=== PATIENT | male | born 1955 | race Caucasian/White ===

== ENCOUNTER 2019-02-24 20:06 | Emergency (ER) | payer BC ==
--- NOTE | 2019-02-24 20:21 | ERPHSYRPT ---
- History of Present Illness Time Seen by Provider: 02/24/19 20:21 Source: patient, family Exam Limitations: no limitations Physician History: 63 y/o right handed white male presents with left elbow pain after fall injury that occurred approx 1800. pt fell backwards while fixing a porch. he felt a pop then had sudden pain. did not take any meds. pain not any better. Occurred: just prior to arrival Method of Injury: fell Quality: constant, aching, throbbing Severity of Pain-Max: moderate Severity of Pain-Current: moderate Extremities Pain Location: elbow: left Modifying Factors: Improves With: movement (worsens pain) Allergies/Adverse Reactions: No Known Drug Allergies Allergy (Unverified 06/04/15 21:31) Home Medications: Fluticasone Propionate [Flonase Nasal] 2 sprays INTRANASAL DAILY 06/04/15 [ History] Meloxicam [Mobic] 0 mg DAILY 06/04/15 [History] Omeprazole [Prilosec] 40 mg DAILY 06/04/15 [History] Hydrocodone/Acetaminophen [Vicodin 5-300 mg Tablet] 1 each PO Q4H PRN PRN [History] - Review of Systems Constitutional: No Symptoms Eyes: No Symptoms Ears, Nose, & Throat: No Symptoms Respiratory: No Symptoms Cardiac: No Symptoms Abdominal/Gastrointestinal: No Symptoms Genitourinary Symptoms: No Symptoms Musculoskeletal: Fall, Injury (left elbow pain) Skin: No Symptoms Neurological: No Symptoms Psychological: No Symptoms Endocrine: No Symptoms Hematologic/Lymphatic: No Symptoms Immunological/Allergic: No Symptoms All Other Systems: Reviewed and Negative - Past Medical History Pertinent Past Medical History: Yes ENT History: Other Cardiac History: No Pertinent History Respiratory History: COPD Endocrine Medical History: No Pertinent History Musculoskeletal History: Arthritis GI Medical History: GERD History: No Pertinent History Psycho-Social History: No Pertinent History Male Reproductive Disorders: Prostate Cancer Other Medical History: sinus problems - Past Surgical History Past Surgical History: Yes Neuro Surgical History: No Pertinent History Cardiac: No Pertinent History Respiratory: No Pertinent History Gastrointestinal: No Pertinent History Genitourinary: No Pertinent History Musculoskeletal: No Pertinent History Male Surgical History: Prostate Surgery - Social History Smoking Status: Current every day smoker How long have you smoked: 45 years Exposure to second hand smoke: No Drug Use: none Patient Lives Alone: No - Nursing Vital Signs Nursing Vital Signs: Pain Scale Pain Intensity 8 - Physical Exam General Appearance: mild distress, alert, anxiety Eyes, Ears, Nose, Throat Exam: normal ENT inspection, moist mucous membranes Neck Exam: normal inspection, non-tender, supple, full range of motion Cardiovascular/Respiratory Exam: chest non-tender Abdominal Exam: non-tender Back Exam: normal inspection Shoulder Exam: normal inspection, non-tender, no evidence of injury, normal ROM Elbow/Forearm Exam: limited ROM (left elbow ), pain Wrist Exam: normal inspection, non-tender, no evidence of injury, normal ROM Hand Exam: normal inspection, non-tender, no evidence of injury, normal ROM Neuro/Tendon Exam: normal sensation, normal tendon functions, responds to pain Mental Status Exam: alert, oriented x 3, cooperative Skin Exam: normal color, warm SpO2 Interpretation: normal O2 Delivery: Room Air Ordered Tests: Active Orders 24 hr Category Date Time Status Sling Application STAT Care 02/24/19 20:58 Ordered ELBOW (MINIMUM 3 VIEWS) Stat Exams 02/24/19 20:22 Taken FOREARM Stat Exams 02/24/19 20:22 Taken HUMERUS Stat Exams 02/24/19 20:22 Taken Medication Summary Discontinued Medications Generic Name Dose Route Start Last Admin Trade Name Carlosq PRN Reason Stop Dose Admin Ibuprofen 600 mg 02/24/19 20:27 02/24/19 20:32 Motrin 600 Mg PO 02/24/19 20:28 600 mg STAT ONE Administration Ibuprofen Confirm 02/24/19 20:30 Motrin 600 Mg Administered 02/24/19 20:31 Dose 600 mg .ROUTE .STK-MED ONE Oxycodone/Acetaminophen 1 tab 02/24/19 20:27 02/24/19 20:33 Oxycodone-Acetaminophen 10-325 PO 02/24/19 20:28 1 tab STAT STA Administration Oxycodone/Acetaminophen Confirm 02/24/19 20:30 Oxycodone-Acetaminophen 10-325 Administered 02/24/19 20:31 Dose 1 tab .ROUTE .STK-MED ONE - Progress Progress: unchanged, pain not gone completely, re-examined Progress Note: 02/24/19 20:59 pt is neurovascularly intact distally with strong radial pulse xray left humerus-no acute fx or dislocation xray left elbow-no acute fx or dislocation xray left forearm-no acute fx or dislocation Counseled pt/family regarding: diagnosis, need for follow-up, rad results - Departure Departure Disposition: Home Clinical Impression: Strain of elbow, left Condition: Stable Critical Care Time: No Referrals: SILVIANO SPAULDING MD [Primary Care Provider] - Additional Instructions: add ibuprofen 600 mg orally three times a day with food. ice pack 3 times daily. wear sling for comfort. follow up with primary doctor for persistent pain. do not take any other narcotics with percocet Prescriptions: Oxycodone HCl/Acetaminophen [Percocet 5-325 mg Tablet] 1 each PO Q6H PRN PRN # 12 tablet MDD 4 PRN Reason: Pain
[2019-02-24] MEDS ORDERED: OXYCODONE-ACETAMINOPHEN 10-325 PO STA (20:27)
[2019-02-24] MEDS ORDERED: MOTRIN 600 MG PO ONE (20:27)
[2019-02-24] MEDS ORDERED: OXYCODONE-ACETAMINOPHEN 10-325 ONE (20:30)
[2019-02-24] MEDS ORDERED: MOTRIN 600 MG ONE (20:30)
[2019-02-24] MEDS ORDERED: PERCOCET TABLET 5/325MG PO STA (21:10)
[2019-02-24] MEDS ORDERED: PERCOCET TABLET 5/325MG ONE (21:41)
[2019-02-24 21:57] VITALS: BP 124/69; PULSE 66; O2SAT 100
--- NOTE | 2019-02-24 22:36 | XRAY ---
Indication: Pain following fall. Comparison: None 2 views of the left humerus demonstrates mild AC degenerative arthropathy. No other bony, articular, or soft tissue abnormalities.
--- NOTE | 2019-02-24 22:36 | XRAY ---
Indication: Pain following fall. Comparison: None 3 views of the left elbow obtained. No bony, articular, or soft tissue abnormalities.
--- NOTE | 2019-02-24 22:38 | XRAY ---
Indication: Pain following fall. Comparison: None 2 views of the left forearm obtained. No bony, articular, or soft tissue abnormalities.
== END 2019-02-24 21:55 | disposition home or self-care (01) ==
LOC: ED 20:06
DX: S53.402A Unspecified sprain of left elbow, initial encounter (principal); W18.39XA Other fall on same level, initial encounter
CPT/HCPCS: 73060; 73080; 73090; 99284; A9270-GY